=== PATIENT | male | born 1940 | race Caucasian/White ===

== ENCOUNTER → 2022-03-08 | Outpatient (CLI) | payer MEDICARE ==
[~2022-03-08] MED LIST: ACETAMINOPHEN-1 EAC1 PO; ALL DAY ALLERGY10 M2 PO; ASPIRIN81 MG PO; ATORVASTATIN CA10 MG PO; COREG12.5 MG PO; COZAAR 50MG TAB50 MG PO; DUREZOL5 ML EYEBOTH; FINASTERIDE5 MG PO; FLOMAX 0.4 MG0.4 MG PO; HYDROCODON-ACE1 EAC6 PO; LASIX20 MG PO; LEVOFLOXACIN500 MG PO; LORAZEPAM2 MG PO; MELOXICAM15 MG PO; NEURONTIN 100100 MG PO; OMEPRAZOLE20 MG PO; PEG3350510 GM PO; VERAPAMIL ER180 MG PO; VERAPAMIL ER240 MG PO
== END ==
LOC: US 09:49
DX: I73.9 Peripheral vascular disease, unspecified (principal)
CPT/HCPCS: 93925